=== PATIENT | male | born 1995 | race Caucasian/White ===

== ENCOUNTER 2017-09-19 18:57 | Emergency (ER) | payer MEDICAID, OTHER ==
[~2017-09-19] VITALS: Ht 172.7 cm; Wt 106.3 kg
[~2017-09-19 18:57] MED LIST: ASPI1TAB69 PO; GUAI100S6 PO; MMW SSP; PRED20 PO; ZITH250T PO
[2017-09-19 19:45] VITALS: BP 151/99; PULSE 110; RESP 18; TEMP 102.7; O2SAT 97
--- NOTE | 2017-09-19 20:38 | PD ---
HPI Chief Complaint: Cold / Flu Symptoms Time Seen by Provider: 20:32 Travel History International Travel<30 days: No Contact w/Intl Traveler<30days: No Traveled to known affect area: No History of Present Illness HPI 22-year-old male presents to the emergency department by private transportation for evaluation of sudden onset subjective fever chills nausea and sore throat headache myalgias arthralgias bilateral flank pain and dysuria. No penile discharge. No productive cough. Patient states symptoms began around 3 PM. Patient is taking no medications for symptom relief. Patient takes no prescription medications. Patient estimates occasional alcohol use and tobacco use. Patient rates discomfort as moderate to severe. No visual disturbance sinus pressure drainage ear pain neck pain or stiffness no chest pain or shortness of breath no vomiting no abdominal pain no diarrhea no joint swelling or skin rash. Patient did not have flu vaccine. PFSH Past Medical History Narrative Medical Anxiety depression; occasional alcohol use tobacco use; nursing notes reviewed Anxiety: Yes Depression: Yes Cancer: No Cardiovascular Problems: No Diminished Hearing: No Endocrine: No Genitourinary: No Musculoskeletal: No Neurologic: Yes Psychiatric: Yes Reproductive: No Respiratory: No Social History Alcohol Use: Yes (SOCIALLY) Tobacco Use: Yes (1/2 pk) Substance Use: No Allergies-Medications (Allergen,Severity, Reaction): Coded Allergies: No Known Allergies (Unverified Adverse Reaction, Unknown, 09/19/17) Reported Meds & Prescriptions Reported Meds & Active Scripts Active Aspirin 81 Mg Tabdr 81 Mg PO DAILY 30 Days Mmw 5-10 Ml SSP 5 TIMES A DAY MAGIC MOUTHWASH CONTAINS 1/3 VISCOUS LIDOCAINE, 1/3 MAALOX, AND 1/3 BENADRYL. Deltasone (Prednisone) 20 Mg Tab 20 Mg PO BID Guaifenesin Ac 10 Ml PO Q6H PRN FOR COUGH Zithromax Z-Vinnie (Azithromycin) 250 Mg Tab 250 Mg PO DIRECTED Z-Pack Take as directed 2 tabs day one 1 tablet days 2 through 5 Review of Systems Except as stated in HPI: all other systems reviewed are Neg General / Constitutional: Positive: Fever, Chills (subjective) HENT: Positive: Headaches, Sore Throat, Congestion, No: Neck Stiffness, Neck Pain Cardiovascular: No: Chest Pain or Discomfort Respiratory: Positive: Cough, No: Shortness of Breath, Wheezing Gastrointestinal: No: Nausea, Vomiting, Diarrhea, Abdominal Pain Genitourinary: Positive: Dysuria, Hesitancy Musculoskeletal: Positive: Myalgias, Arthralgias Skin: No Rash Neurologic: No: Weakness Psychiatric: No: Anxiety Endocrine: No: Polyuria Hematologic/Lymphatic: No: Lymph Node Enlargement Physical Exam Narrative GENERAL: Well-developed well-nourished male in no acute distress no respiratory distress triage vital signs febrile SKIN: Warm and dry. HEAD: Normocephalic. EYES: No scleral icterus. No injection or drainage. ENT: Mucous membranes moist airway is patent posterior pharyngeal erythema without edema or exudative change NECK: Supple, trachea midline. No JVD or lymphadenopathy. No meningismus no nuchal rigidity. CARDIOVASCULAR: Increased Regular rate and rhythm without murmurs, gallops, or rubs. RESPIRATORY: Breath sounds equal bilaterally. No accessory muscle use. GASTROINTESTINAL: Abdomen soft, non-tender, nondistended. MUSCULOSKELETAL: No cyanosis, or edema. BACK: Nontender without obvious deformity. No CVA tenderness. Data Data Last Documented VS Vital Signs Date Time Temp Pulse Resp B/P (MAP) Pulse Ox O2 Delivery O2 Flow Rate FiO2 09/19/17 22:33 99.5 97 16 100/52 (68) 96 Orders Orders Ibuprofen (Motrin) (09/19/17 20:45) Acetaminophen (Tylenol) (09/19/17 20:45) Influenzae A/B Antigen (09/19/17 20:33) Group A Rapid Strep Screen (09/19/17 20:33) Urinalysis - C+S If Indicated (09/19/17 20:33) Strep Culture (Group A) (09/19/17 21:03) Oseltamivir (Tamiflu) (09/19/17 23:15) Ed Discharge Order (09/19/17 23:01) Labs Laboratory Tests Test 09/19/17 22:21 Urine Color YELLOW Urine Turbidity CLEAR Urine pH 5.5 Urine Specific Seaman 1.018 Urine Protein NEG mg/dL Urine Glucose (UA) NEG mg/dL Urine Ketones TRACE mg/dL Urine Occult Blood NEG Urine Nitrite NEG Urine Bilirubin NEG Urine Leukocyte Esterase NEG Urine RBC 0-2 /hpf Urine WBC 0-2 /hpf Urine Squamous Epithelial Cells 0-5 /hpf Urine Bacteria NONE /hpf Microscopic Urinalysis Comment CULT NOT INDICATED MDM Medical Decision Making Medical Screen Exam Complete: Yes Emergency Medical Condition: Yes Medical Record Reviewed: Yes Interpretation(s) rsa: negative influenza: negative UA: Differential Diagnosis Influenza, viral syndrome, pharyngitis, UTI, urethritis Narrative Course Influenza specimen collected for influenza A/B antigen patient with erythematous pharynx rapid strep antigen patient complains of urinary symptoms urinalysis administered weight-based ibuprofen and acetaminophen Rapid strep antigen is negative; influenza antigen is negative but I believe this may be a false negative test patient presents with classic influenza type symptoms; urinalysis is normal; patient has defervesced after ibuprofen and acetaminophen. Patient will be started on Tamiflu for clinical influenza-like illness and fatigue and a fork for the next 3 days he is encouraged to increase fluid hydration take acetaminophen and ibuprofen and follow-up with his primary care provider or return to the emergency department for any concerns or change in condition. Patient understands this foods this is negative but clinically he presents with flu symptoms and will be started on Tamiflu and agrees with taking the medication is aware the sister shortly course of symptoms. Diagnosis Primary Impression: Acute viral syndrome Additional Impression: Influenza-like illness Referrals: Primary Care Physician call for appointment Patient Instructions: General Instructions Departure Forms: Tests/Procedures, Work Release Special Instructions: no work x 3 days Additional Instructions: Increase fluid hydration Rest no work x 3 days Take acetaminophen/Tylenol 650 mg as often as every 4-6 hours as needed for fever 100.4F or greater Take ibuprofen/Advil/Motrin 600 mg as often as every 6 hours up to a maximum of 800 mg no more frequently than every 8 hours as 100.4 degrees Fahrenheit or greater or for pain associated with inflammation Return to the emergency department for a concerns or change in condition Follow-up with your primary care provider Med/Other Pt SpecificInfo: Prescription(s) given Scripts Oseltamivir (Tamiflu) 75 Mg Cap 75 MG PO BID for Mgmt Viral Infection for 5 Days, #10 CAP 0 Refills Prov: Bridget Green MD 09/19/17 Disposition: 01 DISCHARGE HOME Condition: Stable Bridget Green MD Sep 19, 2017 20:38
[2017-09-19] MEDS ORDERED: IBUPROFEN 800 MG TAB PO ONE (20:45)
[2017-09-19] MEDS ORDERED: ACETAMINOPHEN 325 MG TAB PO ONE (20:45)
[2017-09-19 22:33] VITALS: BP 100/52; PULSE 97; RESP 16; TEMP 99.5; O2SAT 96
[2017-09-19 22:38] LABS: BILIRUBIN, URINE NEG (NEG); BLOOD, URINE NEG (NEG); GLUCOSE,URINE NEG (NEG); KETONE, URINE TRACE mg/dL (NEG); NITRITE,URINE NEG (NEG); PH, URINE 5.5 (5.0-8.5); URINE LEUKOCYTE ESTERASE NEG (NEG)
[2017-09-19 22:45] LABS: RBC, URINE 0-2 /hpf (0-3); SQUAMOUS EPITHELIAL CELL URINE 0-5 /hpf (0-5); URINE COLOR YELLOW (YELLW/STRAW); WBC, URINE 0-2 /hpf (0-5)
[2017-09-19] MEDS ORDERED: OSEL75 PO (23:04)
[2017-09-19 23:14] VITALS: BP 150/92; TEMP 99.1
[2017-09-19] MEDS ORDERED: OSELTAMIVIR PHOSPHATE 75 MG CAP PO ONE (23:15)
== END 2017-09-19 23:22 | disposition home or self-care (01) ==
LOC: PHED 18:57 → PHEFT 23:22
DX: J11.1 Influenza due to unidentified influenza virus with other respiratory manifestations (principal); F41.9 Anxiety disorder, unspecified; F32.9 Major depressive disorder, single episode, unspecified; F17.210 Nicotine dependence, cigarettes, uncomplicated; Z79.82 Long term (current) use of aspirin; Z79.899 Other long term (current) drug therapy
CPT/HCPCS: 81001; 87081; 87804; 87880; 99283